=== PATIENT | female | born 1995 | race Caucasian/White ===

== ENCOUNTER 2020-02-19 13:03 | Emergency (ER) | payer MEDICAID, OTHER ==
[~2020-02-19] VITALS: Ht 160 cm; Wt 56.7 kg
[2020-02-19 13:26] VITALS: BP 122/74
[2020-02-19] MEDS ORDERED: EPINEPHrine HCL 1 MG/1 ML AMP SC ONE (14:00)
[2020-02-19] MEDS ORDERED: methylPREDNISolone SOD SUCC 125 MG/2 ML VL IV ONE (14:00)
== END 2020-02-19 14:42 | disposition home or self-care (01) ==
LOC: ER 13:03 → EDBD 13:03 → ER 14:42
DX: T78.40XA Allergy, unspecified, initial encounter (principal); X58.XXXA Exposure to other specified factors, initial encounter
CPT/HCPCS: 96372; 96374; 99283; J0171; J2930

== ENCOUNTER 2024-10-03 19:27 | Emergency (ER) | payer SELFPAY ==
[~2024-10-03] VITALS: Ht 162.6 cm; Wt 70.4 kg
[2024-10-03] MEDS: SODIUM CHLORIDE 0.9% 1,650 ML IV ONE (19:51)
[2024-10-03 19:59] LABS: Hematocrit 41.7 % (36.0-46.0); Hemoglobin 14.6 g/dL (12.2-16.2); Mean Corpuscular Hemoglobin 31.0 pg (28.0-32.0); Mean Corpuscular Volume 88.3 fL (80.0-100.0); Nucleated Red Blood Cells % 0.0 %
[2024-10-03 20:07] LABS: Chloride 104 mmol/L (98-107); Potassium 3.9 mmol/L (3.5-5.1); Sodium 140 mmol/L (136-145)
[2024-10-03] MEDS: ALBUTEROL SULF 2.5 MG/0.5ML(0.5%) NEB SOLN NEB ONE (20:07)
[2024-10-03 20:08] LABS: Anion Gap 9 (5-15); Calcium 9.7 mg/dL (8.7-10.4); Carbon Dioxide 27 mmol/L (20-31)
[2024-10-03] MEDS: ONDANSETRON HCL 4 MG/2 ML VIAL IV ONE (20:09)
[2024-10-03] MEDS: FAMOTIDINE (10MG/ML) 2ML VL IV ONE (20:09)
[2024-10-03] MEDS: diphenhdrAMINE HCL 50 MG/1 ML VL IV ONE (20:10)
--- NOTE | 2024-10-03 20:11 | ED.PDOC ---
HPI Allergic reaction HPI Comments 29 year old female with a Hx of a Nut allergy, and is currently 7x weeks , presents to the ED for the c/c of an Allergic Reaction w/ associated N/V, SOB, and Chest pain. Pt states they her symptoms started approx 30x minutes before ED arrival after ingesting Sesame Seed Oil. Pt notes that she took 2x Benadryl, but notes alleviation of her symptoms. No other associated symptoms, modifiers, recent injuries or sick contacts present at this time. Chief Complaint: Allergic Reaction Time Seen by MD: 19:59 Primary Care Provider: GEOFFREY LOERA Reviewed Notes: Nurses Notes, Medications, Allergies Allergies: Coded Allergies: NO KNOWN ALLERGIES (Unverified , 02/19/20) Information Source: Patient, Spouse Mode of Arrival: Ambulatory Severity: Moderate Rash: None SOB: Mild Difficulty swallowing: Mild Pruritus: None Timing: Minutes Duration: Since onset, Minutes Prehospital treatment: None Exposed to: Food Developed: Difficult Swallowing, Shortness of Breath Modyifying Factors: None Associated Sign and Symptoms: Chest Pain Past Medical History Past Medical History (Other): 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 Moist mucous membranes.) Neck: Full Range of Motion, Normal Inspection Respiratory: Decreased Breath Sounds, No Accessory Muscle Use, No Respiratory Distress, Normal Breath Sounds Cardiovascular: No Edema, No JVD, Regular Rate/Rhythm Breast Exam: Deferred Gastrointestinal: Non Tender, Soft Genitalia: Deferred Pelvic: Deferred Rectal: Deferred Extremities: Normal inspection, Normal range of motion, Non-tender, No pedal edema Neurologic: Alert (Oriented x4), Normal Affect, Normal Mood, Other (Ambulatory) Cerebellar Function: NOT DONE Reflexes: NOT DONE Skin: Dry, Warm, Other (Mild diffuse skin erythema without edema or rash) Lymphatic: NOT DONE Was a procedure done? Was a procedure done?: No Differential diagnosis (all) Differential Diagnosis: Anaphylaxis, Angioedema, Bronchospasm, Respiratory Failure, Urticaria X-Ray, Labs, Meds, VS Vital Signs Date Time Temp Pulse Resp B/P (MAP) Pulse Ox O2 Delivery O2 Flow Rate FiO2 10/03/24 21:48 98.8 87 18 122/68 (86) 99 98.8 10/03/24 20:08 20 98 Room Air* 0 21 10/03/24 19:55 96 15 93 Room Air 10/03/24 19:28 98.2 96 15 142/92 93 98.2 Lab Test 10/03/24 20:37 10/03/24 19:48 Range/Units Troponin I High Sensitivity < 3 L < 3 L </=34 ng/L White Blood Count 8.5 4.4-10.8 10^3/uL Red Blood Count 4.72 4.0-5.20 10^6/uL Hemoglobin 14.6 12.2-16.2 g/dL Hematocrit 41.7 36.0-46.0 % Mean Corpuscular Volume 88.3 80.0-100.0 fL Mean Corpuscular Hemoglobin 31.0 28.0-32.0 pg Mean Corpuscular Hemoglobin Concent 35.2 32.0-36.0 g/dL Red Cell Distribution Width 12.5 11.8-14.3 % Platelet Count 366 140-450 10^3/uL Mean Platelet Volume 7.3 6.9-10.8 fL Neutrophils (%) (Auto) 51.7 37.0-80.0 % Lymphocytes (%) (Auto) 37.3 10.0-50.0 % Monocytes (%) (Auto) 7.1 0.0-12.0 % Eosinophils (%) (Auto) 3.2 0.0-7.0 % Basophils (%) (Auto) 0.7 0.0-2.0 % Neutrophils # (Auto) 4.4 1.6-8.6 10 ^3/uL Lymphocytes # (Auto) 3.2 0.4-5.4 10 ^3/uL Monocytes # (Auto) 0.6 0-1.3 10 ^3/uL Eosinophils # (Auto) 0.3 0-0.8 10 ^3/uL Basophils # (Auto) 0.1 0-0.2 10 ^3/uL Nucleated Red Blood Cells 0.0 % Sodium Level 140 136-145 mmol/L Potassium Level 3.9 3.5-5.1 mmol/L Chloride Level 104 98-107 mmol/L Carbon Dioxide Level 27 20-31 mmol/L Anion Gap 9 5-15 Blood Urea Nitrogen 11 9-23 mg/dL Creatinine 0.93 0.550-1.02 mg/dL Glomerular Filtration Rate Calc 86 >90 mL/min BUN/Creatinine Ratio 11.8 10.0-20.0 Serum Glucose 93 74-106 mg/dL Calcium Level 9.7 8.7-10.4 mg/dL B-Type Natriuretic Peptide 6.21 0-100 pg/mL Current Medications Medications (Trade) Dose Ordered Sig/Aurea Route Start Time Stop Time Status Last Admin Sodium Chloride 1,650 ml @ 1,650 mls/hr ONCE ONCE IV 10/03/24 19:45 10/03/24 20:44 DC 10/03/24 19:51 Ondansetron HCl (Zofran) 4 mg ONCE ONCE IV 10/03/24 19:45 10/03/24 19:46 DC 10/03/24 20:09 Diphenhydramine HCl (Benadryl Injection) 50 mg ONCE ONCE IV 10/03/24 19:45 10/03/24 19:46 DC 10/03/24 20:17 Famotidine (Pepcid Injection) 20 mg ONCE ONCE IV 10/03/24 19:45 10/03/24 19:46 DC 10/03/24 20:09 Dexamethasone Sodium Phosphate (Decadron Injection) 10 mg ONCE ONCE IV 10/03/24 19:45 10/03/24 19:46 DC 10/03/24 20:09 Albuterol (Ventolin Medneb) 5 mg ONCE ONCE NEB 10/03/24 19:45 10/03/24 19:46 DC 10/03/24 20:07 X-Ray, Labs, Meds, VS Comment 29-year-old female with current 6-7 week complaining of an allergic reaction to sesame oil Vitals remarkable for BP 142/92, oxygen saturation 93% on room air Exam remarkable for diminished breath sounds at lung bases and mild diffuse skin erythema Rhythm strip independently interpreted by me: Sinus rhythm, rate 86, no ectopy. CBC, basic metabolic panel, BNP and 2 serial troponins unremarkable Patient treated with the following in the ED: 2 L 0.9 normal saline IV bolus, Benadryl 50 mg IV, Pepcid 20 mg IV, Decadron 10 mg IV, Zofran 4 mg IV, albuterol 5 mg/Atrovent 0.5 mg nebulized On re-evaluation, symptoms are improving. Oxygen saturation is 99% on room air and other vitals were stable. Prior to formal discharge, patient stated she did not want to wait any longer, so left the ED. Time of 1ST Reevaluation: 20:30 Reevaluation 1ST: Unchanged Patient Education/Counseling: Diagnosis, Treatment, Need For Follow Up Family Education/Counseling: No Family Present SEPSIS Sepsis Screen Date sepsis recognized/suspect: Oct 03, 2024 Time Sepsis recognized/suspect: 1927 Recent Procedure: No On Antibiotic Therapy: No Respiratory Rate >20: No Heart Rate >90: No Temp<36 C (96.8 F) or >38.3 C: No SBP <90 or MAP <65 mmHG: No New Acute Mental Status Change: No Is the patient on CPAP, BIPAP,: No Physician Orders Urinalysis (10/03/24 19:40) Electrocardigram (10/03/24 19:40) Electrocardigram (10/03/24 20:40) Electrocardigram (10/03/24 22:40) Vital Signs Date Time Temp Pulse Resp B/P (MAP) Pulse Ox O2 Delivery O2 Flow Rate FiO2 10/03/24 21:48 98.8 87 18 122/68 (86) 99 98.8 10/03/24 20:08 20 98 Room Air* 0 21 10/03/24 19:55 96 15 93 Room Air 10/03/24 19:28 98.2 96 15 142/92 93 98.2 Laboratory Tests Test 10/03/24 19:48 White Blood Count 8.5 10^3/uL (4.4-10.8) Medications Medications Dose Ordered Sig/Aurea Route Start Time Stop Time Status Last Admin Dose Admin Albuterol 5 mg ONCE ONCE NEB 10/03/24 19:45 10/03/24 19:46 DC 10/03/24 20:07 Dexamethasone Sodium Phosphate 10 mg ONCE ONCE IV 10/03/24 19:45 10/03/24 19:46 DC 10/03/24 20:09 Diphenhydramine HCl 50 mg ONCE ONCE IV 10/03/24 19:45 10/03/24 19:46 DC 10/03/24 20:17 Famotidine 20 mg ONCE ONCE IV 10/03/24 19:45 10/03/24 19:46 DC 10/03/24 20:09 Ondansetron HCl 4 mg ONCE ONCE IV 10/03/24 19:45 10/03/24 19:46 DC 10/03/24 20:09 Sodium Chloride 1,650 ml @ 1,650 mls/hr ONCE ONCE IV 10/03/24 19:45 10/03/24 20:44 DC 10/03/24 19:51 Departure 1 Departure Time of Disposition: 22:08 Impression: Primary Impression: Allergic reaction Disposition: LEFT AWOL/ELOPED Condition: Stable Critical Care Note Critical Care Time?: No Stability Stability form required: No Heart Score Heart Score: Heart Score Response (Comments) Value History N/A 0 EKG N/A 0 Age N/A 0 Risk Factors N/A 0 Troponin N/A 0 Total 0 I personally scribed for DAYANARA TAM MD ([email or web address]) on 10/03/24 at 20:11. Electronically submitted by Oseas Deras ([email or web address]). DAYANARA TAM MD Oct 03, 2024 20:11
[2024-10-03 20:13] LABS: BUN/Creatinine Ratio 11.8 (10.0-20.0); Blood Urea Nitrogen 11 mg/dL (9-23); Glucose 93 mg/dL (74-106)
[2024-10-03 21:48] VITALS: BP 122/68; PULSE 87; RESP 18; TEMP 98.8; O2SAT 99
== END 2024-10-03 22:08 | disposition left against medical advice (07) ==
LOC: ER 19:27
DX: O99.711 Diseases of the skin and subcutaneous tissue complicating pregnancy, first trimester (principal); L53.9 Erythematous condition, unspecified; Z3A.01 Less than 8 weeks gestation of pregnancy; Z79.899 Other long term (current) drug therapy
CPT/HCPCS: 36415; 80048; 83880; 84484; 85025; 94640; 96361; 96374; 96375; 99284; J1100; J1200; J2405; J3490; J7030